=== PATIENT | female | born 1985 | race African-American/Black ===

== ENCOUNTER 2017-04-11 13:20 | Emergency (ER) | payer MEDICAID ==
[2017-04-11 18:05] LABS: ADD UMIC NO; UR ASCORBIC ACID NEGATIVE (NEGATIVE); UR BILIRUBIN (Dip) NEGATIVE (NEGATIVE); UR BLOOD (Dip) NEGATIVE (NEGATIVE); UR CLARITY CLEAR (CLEAR); UR COLOR STRAW (YELLOW); UR GLUCOSE (Dip) NEGATIVE (NEGATIVE); UR KETONES (Dip) NEGATIVE (NEGATIVE); UR LEUKOCYTE ESTERASE (Dip) NEGATIVE Leu/ul (NEGATIVE); UR NITRITE (Dip) NEGATIVE (NEGATIVE); UR SPECIFIC GRAVITY (Dip) 1.004 (1.003-1.030); UR TOTAL PROTEIN (Dip) NEGATIVE (NEGATIVE); UR UROBILINOGEN (Dip) NEGATIVE (NEGATIVE)
[2017-04-11] MEDS: METOCLOPRAMIDE 10 MG INJ IV (18:13)
[2017-04-11] MEDS: SOD CHLORIDE 0.9% 1,000 ML IV (18:13)
[2017-04-11] MEDS: DIPHENHYDRAMINE 50 MG INJ IV (18:13)
[2017-04-11] MEDS: KETOROLAC 30 MG INJ IV (18:13)
[2017-04-11 18:25] LABS: ADD MAN DIFF? NO
[2017-04-11 18:33] LABS: BASOPHILS % 0.3 % (0.0-2.0); EOSINOPHILS # 0.1 10^3/ul (0.0-0.5); EOSINOPHILS % 1.2 % (0.0-7.0); HEMATOCRIT 40.5 % (37.0-47.0); HEMOGLOBIN 13.1 g/dl (12.0-16.0); LYMPHOCYTES # 2.2 10^3/ul (0.8-2.9); MEAN CORPUSCULAR HEMOGLOBIN 28.2 pg (29.0-33.0); MEAN CORPUSCULAR HGB CONC 32.3 g/dl (32.0-37.0); MEAN CORPUSCULAR VOLUME 87.1 fl (82.0-101.0); MEAN PLATELET VOLUME 10.1 fl (7.4-10.4); MONOCYTE # 0.4 10^3/ul (0.3-0.9); NEUTROPHIL # 3.3 10^3/ul (1.6-7.5); NEUTROPHILS % 55.2 % (39.0-77.0); PLATELET COUNT 269 10^3/UL (140-415); RED BLOOD COUNT 4.65 10^6/ul (4.20-5.40); RED CELL DISTRIBUTION WIDTH 14.3 % (11.5-14.5)
[2017-04-11 18:59] LABS: ALANINE AMINOTRANSFERASE 30 IU/L (13-69); ALBUMIN 4.8 g/dl (3.3-4.9); ALBUMIN/GLOBULIN RATIO 1.33; ALKALINE PHOSPHATASE 39 IU/L (42-121); ANION GAP 16 (8-16); ASPARTATE AMINO TRANSFERASE 26 IU/L (15-46); BILIRUBIN,INDIRECT 0.9 mg/dl (0-1.1); BILIRUBIN,TOTAL 0.9 mg/dl (0.2-1.3); BLOOD UREA NITROGEN 7 mg/dl (7-20); CALCIUM 9.3 mg/dl (8.4-10.2); CARBON DIOXIDE 27 mmol/L (21-31); CHLORIDE 105 mmol/L (97-110); CREATININE 0.66 mg/dl (0.44-1.00); GLUCOSE 82 mg/dl (70-220); POTASSIUM 3.8 mmol/L (3.5-5.1); SODIUM 144 mmol/L (135-144); TOTAL PROTEIN 8.4 g/dl (6.1-8.1)
== END 2017-04-11 20:09 | disposition home or self-care (01) ==
LOC: FTE 13:20
DX: R51 Headache (principal); R42 Dizziness and giddiness
CPT/HCPCS: 80053; 81003; 85025; 93005; 96374; 96375; 99284-25

== ENCOUNTER 2017-11-25 23:05 | Emergency (ER) | payer OTHER ==
[2017-11-26 00:59] LABS: ADD MAN DIFF? NO
[2017-11-26 01:05] LABS: BASOPHILS % 0.3 % (0.0-2.0); EOSINOPHILS # 0.1 10^3/ul (0.0-0.5); EOSINOPHILS % 1.1 % (0.0-7.0); HEMATOCRIT 32.8 % (37.0-47.0); HEMOGLOBIN 10.3 g/dl (12.0-16.0); LYMPHOCYTES # 2.2 10^3/ul (0.8-2.9); LYMPHOCYTES % 34.8 % (15.0-51.0); MEAN CORPUSCULAR HEMOGLOBIN 25.9 pg (29.0-33.0); MEAN CORPUSCULAR HGB CONC 31.4 g/dl (32.0-37.0); MEAN CORPUSCULAR VOLUME 82.6 fl (82.0-101.0); MEAN PLATELET VOLUME 9.9 fl (7.4-10.4); MONOCYTE # 0.5 10^3/ul (0.3-0.9); MONOCYTES % 8.5 % (0.0-11.0); NEUTROPHIL # 3.5 10^3/ul (1.6-7.5); PLATELET COUNT 210 10^3/UL (140-415); RED BLOOD COUNT 3.97 10^6/ul (4.20-5.40); RED CELL DISTRIBUTION WIDTH 14.6 % (11.5-14.5)
[2017-11-26 01:05] LABS: WHITE BLOOD COUNT 6.3 10^3/ul (4.8-10.8)
[2017-11-26 01:07] LABS: ADD UMIC NO; UR ASCORBIC ACID NEGATIVE (NEGATIVE); UR BILIRUBIN (Dip) NEGATIVE (NEGATIVE); UR BLOOD (Dip) NEGATIVE (NEGATIVE); UR CLARITY CLEAR (CLEAR); UR COLOR STRAW (YELLOW); UR GLUCOSE (Dip) NEGATIVE (NEGATIVE); UR KETONES (Dip) NEGATIVE (NEGATIVE); UR LEUKOCYTE ESTERASE (Dip) NEGATIVE Leu/ul (NEGATIVE); UR NITRITE (Dip) NEGATIVE (NEGATIVE); UR SPECIFIC GRAVITY (Dip) 1.009 (1.003-1.030); UR TOTAL PROTEIN (Dip) NEGATIVE (NEGATIVE); UR UROBILINOGEN (Dip) NEGATIVE (NEGATIVE)
== END 2017-11-26 02:49 | disposition home or self-care (01) ==
LOC: FTE 23:05
DX: O26.891 Other specified pregnancy related conditions, first trimester (principal); R10.84 Generalized abdominal pain; Z3A.01 Less than 8 weeks gestation of pregnancy
CPT/HCPCS: 36415; 76801; 81003; 81025; 84702; 85025; 86900; 86901; 99284-25

== ENCOUNTER 2018-07-16 07:10 | Inpatient (IN) | payer OTHER ==
[2018-07-16] MEDS ORDERED: LACTATED RINGER'S 1,000 ML IV (07:36)
[2018-07-16] MEDS ORDERED: METHYLERGONOVINE 0.2 MG INJ IM ×2 (08:00→12:30)
[2018-07-16] MEDS ORDERED: CARBOPROST 250 MCG INJ IM ×2 (08:00→12:30)
[2018-07-16] MEDS ORDERED: LIDOCAINE 1% (MPF) 30 ML INJ INJ (08:00)
[2018-07-16] MEDS ORDERED: OXYTOCIN 30 UNITS/LR 500 ML IV ×2 (08:00→12:30)
[2018-07-16] MEDS ORDERED: MISOPROSTOL 200 MCG TAB PR ×2 (08:00→12:30)
[2018-07-16] MEDS ORDERED: IBUPROFEN 600 MG TAB PO (08:00)
[2018-07-16] MEDS ORDERED: BUTORPHANOL 2 MG INJ IV (08:00)
[2018-07-16] MEDS: LACTATED RINGER'S 1,000 ML IV ×3 (08:22→11:35)
[2018-07-16 08:24] LABS: ADD MAN DIFF? NO
[2018-07-16 08:38] LABS: BASOPHILS % 0.4 % (0.0-2.0); EOSINOPHILS % 0.4 % (0.0-7.0); HEMATOCRIT 41.5 % (37.0-47.0); HEMOGLOBIN 14.3 g/dl (12.0-16.0); LYMPHOCYTES # 1.3 10^3/ul (0.8-2.9); LYMPHOCYTES % 27.2 % (15.0-51.0); MEAN CORPUSCULAR HGB CONC 34.5 g/dl (32.0-37.0); MEAN PLATELET VOLUME 10.2 fl (7.4-10.4); MONOCYTE # 0.4 10^3/ul (0.3-0.9); MONOCYTES % 8.5 % (0.0-11.0); NEUTROPHILS % 63.1 % (39.0-77.0); PLATELET COUNT 159 10^3/UL (140-415); RED BLOOD COUNT 4.61 10^6/ul (4.20-5.40); RED CELL DISTRIBUTION WIDTH 12.6 % (11.5-14.5)
[2018-07-16 08:38] LABS: WHITE BLOOD COUNT 4.8 10^3/ul (4.8-10.8)
[2018-07-16] MEDS ORDERED: ONDANSETRON 4 MG INJ IV ×2 (09:00→12:30)
[2018-07-16] MEDS ORDERED: ZOLPIDEM 5 MG TAB PO (09:00)
[2018-07-16] MEDS ORDERED: NALOXONE (0.4 MG/ML) INJ IV (09:00)
[2018-07-16] MEDS ORDERED: DIPHENHYDRAMINE 50 MG INJ IV (09:00)
[2018-07-16] MEDS ORDERED: FENTAnyl 2MCG/ML-ROPIV 0.2% 100 ML BAG EPI (09:00)
[2018-07-16] MEDS ORDERED: HYDROmorphONE 0.5 MG/0.5 ML SYG IV ×2 (09:00)
[2018-07-16] MEDS ORDERED: KETOROLAC 30 MG INJ IV (09:00)
[2018-07-16 09:23] LABS: INR 0.88; PT RATIO 0.9
[2018-07-16 09:24] LABS: PARTIAL THROMBOPLASTIN TIME 25.3 Sec (23.0-35.0)
[2018-07-16 09:31] LABS: HEPATITIS B SURFACE ANTIGEN NEGATIVE (NEGATIVE)
[2018-07-16] MEDS: OXYTOCIN 30 UNITS/LR 500 ML IV ×4 (12:22→16:30)
[2018-07-16] MEDS ORDERED: OXYCODONE/ASPIRIN (4.88/325) TAB PO ×2 (12:30)
[2018-07-16] MEDS ORDERED: NACL 0.9% 3 ML SYG IV (12:30)
[2018-07-16 12:37] LABS: CBV Base Excess -3.9 mmol/L; CBV COHb 0 %; CBV Total Hemglobin 14.3 g/dl; Cord Blood Venous pO2 12.7 mmHG (15.0-45.0); Fraction OxyHgb Cord Venous 19.5 %; MODE ROOM AIR; MetHgb Cord Venous 2.4 %; Sample Type CBV; Site CORD
[2018-07-16 14:56] LABS: RAPID PLASMA REAGIN NONREACTIVE (NR)
[2018-07-16] MEDS: WITCH HAZEL/GLYCERIN PAD PR (16:30)
[2018-07-16] MEDS: LANOLIN HPA 1 PKT TOP (16:30)
[2018-07-16] MEDS: BENZOCAINE 20% 56 ML SPRAY TOP (16:30)
[2018-07-16] MEDS: IBUPROFEN 600 MG TAB PO (17:31)
[2018-07-16] MEDS: SENNA/DOCUSATE NA (8.6MG/50MG) TAB PO (21:54)
[2018-07-17] MEDS: IBUPROFEN 600 MG TAB PO ×5 (00:28→23:46)
[2018-07-17 07:41] LABS: AADO2 Cord Arterial 63.6 mmHg; Arterial Cord Blood pCO2 48.4 mmHG (25-50); CBA Base Excess -2.6 mmol/L; CBA COHb 0.9 %; CBA Oxygen Sat 66.6 mmHG; CBA Total Hemglobin 14.6 g/dl; Cord Blood Arterial pO2 28.2 mmHG (15.0-45.0); Fraction OxyHgb Cord Arterial 64.9 %; MODE ROOM AIR; MetHgb Cord Arterial 1.6 %; Sample Type CBA; Site CORD
[2018-07-17 08:36] LABS: ADD MAN DIFF? NO
[2018-07-17 08:44] LABS: BASOPHILS % 0.1 % (0.0-2.0); EOSINOPHILS % 0.5 % (0.0-7.0); HEMOGLOBIN 12.6 g/dl (12.0-16.0); LYMPHOCYTES # 1.2 10^3/ul (0.8-2.9); LYMPHOCYTES % 14.8 % (15.0-51.0); MEAN CORPUSCULAR HEMOGLOBIN 31.1 pg (29.0-33.0); MEAN CORPUSCULAR HGB CONC 34.1 g/dl (32.0-37.0); MEAN CORPUSCULAR VOLUME 91.4 fl (82.0-101.0); MEAN PLATELET VOLUME 10.6 fl (7.4-10.4); MONOCYTE # 0.5 10^3/ul (0.3-0.9); MONOCYTES % 6.4 % (0.0-11.0); NEUTROPHIL # 6.3 10^3/ul (1.6-7.5); NEUTROPHILS % 77.8 % (39.0-77.0); PLATELET COUNT 132 10^3/UL (140-415); RED BLOOD COUNT 4.05 10^6/ul (4.20-5.40); RED CELL DISTRIBUTION WIDTH 12.6 % (11.5-14.5)
[2018-07-17 08:44] LABS: WHITE BLOOD COUNT 8.1 10^3/ul (4.8-10.8)
[2018-07-17] MEDS: SENNA/DOCUSATE NA (8.6MG/50MG) TAB PO ×2 (11:58→22:06)
[2018-07-18] MEDS: IBUPROFEN 600 MG TAB PO ×2 (05:44→12:00)
[2018-07-18] MEDS: SENNA/DOCUSATE NA (8.6MG/50MG) TAB PO (10:20)
== END 2018-07-18 12:50 | disposition home or self-care (01) | DRG 807 ==
LOC: OBT 07:10 → L-D 07:10 → OBT 07:45 → L-D 07:48 → PP1 14:32
PROVIDERS: Obstetrics & Gynecology
PROC: 10E0XZZ Delivery of Products of Conception, External Approach (ICD-10-PCS; principal; 2018-07-16)
PROC: 0HQ9XZZ Repair Perineum Skin, External Approach (ICD-10-PCS; 2018-07-16)
PROC: 4A1HXCZ Monitoring of Products of Conception, Cardiac Rate, External Approach (ICD-10-PCS; 2018-07-16)
DX: O70.0 First degree perineal laceration during delivery (principal); Z37.0 Single live birth; O69.1XX0 Labor and delivery complicated by cord around neck, with compression, not applicable or unspecified; Z3A.38 38 weeks gestation of pregnancy
CPT/HCPCS: 36415; 36600; 76815; 82803; 85025; 85610; 85730; 86592; 86850; 86900; 86901; 87340